=== PATIENT | female | born 1955 | race Caucasian/White ===

== ENCOUNTER 2017-12-09 10:21 | Inpatient (IN) | payer OTHER ==
[~2017-12-09] VITALS: Ht 165.1 cm; Wt 65.3 kg
[2017-12-09 10:30] VITALS: BP 99/73
[2017-12-09] MEDS ORDERED: CARAFATE 1 GM TA1 G1 PO (10:38)
[2017-12-09] MEDS ORDERED: OMEPRAZOLE20 MG PO (10:39)
[2017-12-09] MEDS ORDERED: ZANTAC300 MG PO (10:39)
[2017-12-09 11:08] LABS: HEMATOCRIT 37.8 % (37.0-47.0); HEMOGLOBIN 12.2 gm/dL (12.0-15.0); MCH 26.3 pg (26.0-34.0); MCHC 32.3 g/dL (28.0-37.0); MCV 81.4 fL (80.0-100.0); MPV 8.2 fl. (7.2-11.1); NUCLEATED RBCS 0 /100WBC; PLATELET COUNT* 233 thou/uL (150-400); RBC 4.64 mil/uL (4.20-5.00); RDW-CV 19.3 % (10.5-14.5); WBC 13.2 thou/uL (4.0-11.0)
[2017-12-09 11:13] LABS: ANION GAP 14 mmol/L (7-16); BUN 18 mg/dL (7-18); CALCIUM 9.1 mg/dL (8.5-10.1); CHLORIDE 96 mmol/L (98-107); CO2 23 mmol/L (21-32); CREATININE 0.9 mg/dL (0.6-1.3); GLUCOSE 130 mg/dL (70-99); POTASSIUM 3.1 mmol/L (3.5-5.1); SODIUM 133 mmol/L (136-145)
[2017-12-09 11:24] LABS: ALBUMIN 3.2 g/dL (3.4-5.0); ALKALINE PHOSPHATASE 742 U/L (46-116); LIPASE 56 U/L (73-393); NT-PRO BRAIN NAT PEPTIDE 1027 pg/mL (<300); SGOT 285 U/L (15-37); SGPT 639 U/L (30-65); TOTAL BILIRUBIN 3.6 mg/dL (<0.1-1.0); TROPONIN-I LEVEL <0.06 ng/mL (<0.06)
[2017-12-09 11:26] LABS: ABSOLUTE LYMPHOCYTES 0.9 thou/uL (0.8-5.3); ABSOLUTE MONOCYTES 0.1 thou/uL (0.0-1.2); ABSOLUTE NEUTROPHILS 12.1 thou/uL (1.6-8.1); PLATELET ESTIMATE ADEQUATE
[2017-12-09 20:10] VITALS: BP 125/70
[2017-12-09 21:00] VITALS: BP 156/74
[2017-12-10] VITALS: BP 122/72
--- NOTE | 2017-12-10 02:47 | NUR ---
ASSUMED PT CRAE AT 2030, PT IS A&OX4, PT IS TRACING NSR ON THE MONITOR, OCCASIONALLY PACED. ADMISSION ASSESSMENT WAS COMPLETED CHARTED. PT IS ON RA SATTING MID TO HIGH 90'S. PT C/O EPIGASTRIC PAIN THROUGHOUT THE SHIFT, PRN PAIN MEDICATIONS GIVEN PER JAN. PT IS ON A CL DIET, TOLERATING IT WELL. BED IN LOW POSITION, CALL LIGHT IN REACH, HOURLY ROUNDING COMPLETED FOR PT SAFETY.
[2017-12-10 04:00] VITALS: BP 117/73
[2017-12-10 05:30] LABS: ABSOLUTE LYMPHOCYTES 0.4 thou/uL (0.8-5.3); ABSOLUTE MONOCYTES 0.3 thou/uL (0.0-1.2); ABSOLUTE NEUTROPHILS 4.1 thou/uL (1.6-8.1); BASOPHILS 0.1 %; EOSINOPHILS 0.4 %; HEMATOCRIT 31.9 % (37.0-47.0); LYMPHOCYTES 7.6 %; MCH 25.9 pg (26.0-34.0); MCHC 31.6 g/dL (28.0-37.0); MCV 81.9 fL (80.0-100.0); MONOCYTES 6.7 %; MPV 8.1 fl. (7.2-11.1); NUCLEATED RBCS 0 /100WBC; POLYS 85.2 %; RBC 3.89 mil/uL (4.20-5.00); RDW-CV 18.8 % (10.5-14.5); WBC 4.8 thou/uL (4.0-11.0)
[2017-12-10 05:32] LABS: HEMOGLOBIN 10.1 gm/dL (12.0-15.0); PLATELET COUNT* 153 thou/uL (150-400)
[2017-12-10 05:50] LABS: CALCIUM 8.1 mg/dL (8.5-10.1); CREATININE 0.5 mg/dL (0.6-1.3)
[2017-12-10 05:59] LABS: POTASSIUM 2.9 mmol/L (3.5-5.1)
[2017-12-10 08:00] VITALS: BP 127/87
--- NOTE | 2017-12-10 10:44 | NUR ---
CM SPOKE TO THE PATIENT TO DISCUSS HOME SITUATION, DISCHARGE PLANNING, AND TO INFORM OF THE ROLE OF CM. PATIENT ALERT, ORIENTED, AND INDPENEDENT WITH ADL'S. PATIENT RESIDES IN A FRIENDS BASEMENT. 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 PATIENT USES 0 DME. PATIENT HAS NO HX OF HH OR SNF. PATIENT PLANS TO RETURN HOME AT DISCHARGE. CM WILL REMAIN AVAILABLE TO ASSIST AND FOLLOW NEEDED.
[2017-12-10 11:19] LABS: ALBUMIN 2.5 g/dL (3.4-5.0); DIRECT BILIRUBIN 1.7 mg/dL (<0.1-0.3); TOTAL PROTEIN 5.6 g/dL (6.4-8.2)
[2017-12-10 11:59] VITALS: BP 119/71
[2017-12-10 15:47] VITALS: BP 141/78
[2017-12-10 16:07] LABS: HEPATITIS B SURFACE AG Negative (Negative)
--- NOTE | 2017-12-10 17:38 | EKG ---
[place] [address] ELECTROCARDIOGRAM REPORT Name: CARMEN RODRIGUEZ Room: [address] IN .R.#: [id number] Admission: 12/09/17 Attend Phys: Dm Ojeda MD Discharge: Date of : 57 Report #: [id number] THIS REPORT FOR: //name// [facility] ED Test Date: 2017-12-09 Test Time: 10:25:56 Pat Name: CARMEN RODRIGUEZ Department: Room: [facility] Gender: F Spring Internship: Yair KRUEGER : 1955 Requested By: Leticia Matos Order Number: [id number] MD: Tashi Kaiser Measurements Intervals Casey Rate: 121 P: 59 OK: 112 QRS: 113 QRSD: 85 T: 0 QT: 273 QTc: 388 Interpretive Statements Sinus tachycardia Left posterior fascicular block Borderline T wave abnormalities No previous ECG available for comparison Electronically Signed On 12-10-2017 17:38:15 CONTENT CURATOR by Tashi Kaiser [email or web address] <ELECTRONICALLY SIGNED> By: Tashi Kaiser MD, [facility] 12/10/17 1738 1025 Tashi Kaiser MD, FAC /EPI
--- NOTE | 2017-12-10 18:53 | NUR ---
PATINET RESTING IN BED. VITAL SIGNS STABLE AND PATIENT IN NO APPARENT DISTRESS AT THIS TIME. PATINET IS MED/SURG STATUS. HOURLKY ROUNDING COMPLETD FOR PATINET SAFETY.
[2017-12-10 20:30] VITALS: BP 150/86
[2017-12-11 00:08] VITALS: BP 140/58
[2017-12-11 05:31] LABS: ABSOLUTE EOSINOPHILS 0.1 thou/uL (0.0-0.7); ABSOLUTE LYMPHOCYTES 0.6 thou/uL (0.8-5.3); ABSOLUTE MONOCYTES 0.3 thou/uL (0.0-1.2); BASOPHILS 0.5 %; EOSINOPHILS 2.4 %; HEMATOCRIT 31.1 % (37.0-47.0); MCH 26.3 pg (26.0-34.0); MCHC 32.3 g/dL (28.0-37.0); MCV 81.5 fL (80.0-100.0); MONOCYTES 10.7 %; MPV 8.2 fl. (7.2-11.1); NUCLEATED RBCS 0 /100WBC; PLATELET COUNT* 164 thou/uL (150-400); POLYS 67.4 %; RBC 3.82 mil/uL (4.20-5.00); RDW-CV 18.7 % (10.5-14.5); WBC 2.9 thou/uL (4.0-11.0)
[2017-12-11 05:36] LABS: ALBUMIN 2.2 g/dL (3.4-5.0); CALCIUM 8.3 mg/dL (8.5-10.1); CREATININE 0.5 mg/dL (0.6-1.3); POTASSIUM 3.6 mmol/L (3.5-5.1); TOTAL PROTEIN 5.9 g/dL (6.4-8.2)
--- NOTE | 2017-12-11 05:46 | NUR ---
ASSUMED CARE AROUND 1930. PT A/OX4 AND PLEASANT, NO NEW CONCERNS VOICED DURING NIGHT. MED/SURG STATUS. VSS. ON ROOM AIR. REPORTS 2/10 EPIGASTRIC PAIN BUT REFUSED ANY PAIN MEDS. IVF INFUSING ORDERED. UP AD JUANI. SEE CHARTING. CALL LIGHT IN REACH, WILL CONTINUE WITH PLAN OF CARE.
[2017-12-11 08:00] VITALS: BP 141/70
--- NOTE | 2017-12-11 08:25 | NUR ---
RECEIVED REPORT. ASSUMED CARE OF PT AT O730. VSS. PT A&O X4. O2 SAT >90% ON ROOM AIR. PT M/S STATUS. IV PATENT AND INFUSING. PT TOLERATING LIQUID DIET - WANTING TO BE ADVANCED. PT ANXIOUS TO DC IF ABLE. PT INFORMED OF PLAN OF CARE, PT COMMUNICATES UNDERSTANDING. PT DENIES PAIN OR DISCOMFORT, EXCEPT VERY MINIMAL EPIGASTRIC PAIN. PT UP AD JUANI IN ROOM. LOW FALL RISK PRECAUTIONS IN PLACE. CALL LIGHT IS WITHIN REACH, WILL CONTINUE TO MONITOR.
[2017-12-11 13:08] LABS: IgG 704 mg/dL (700-1600); IgM 26 mg/dL (26-217)
[2017-12-11 15:38] VITALS: BP 139/73
--- NOTE | 2017-12-11 18:30 | NUR ---
VSS. 02 SAT >90% ON ROOM AIR. IV PATENT AND INFUSING. M/S STATUS. DIET ADVANCED TO REGULAR, TOERATING WELL. RECORDS OBTAINED FROM [facility] PER DR HERNANDEZ'S REQUEST. PT HAS DISCHARGE ORDERS IN CHART IF OKAY WITH CONSULTS, BUT GI NOT READY TO SIGN OFF. POTENTIAL DC TOMORROW. PT CONTINUES TO DENY PAIN. UP AD JUANI. VOIDING WITHOUT ISSUE. FAMILY VISITED THIS EVENING. HOURLY ROUNDING PERFORMED. LOW FALL RISK PRECAUTIONS IN PLACE. CALL LIGHT IS WITHIN REACH.
[2017-12-11 20:07] VITALS: BP 132/79
[2017-12-11 23:41] VITALS: BP 130/75
[2017-12-12 05:22] LABS: ALBUMIN 2.2 g/dL (3.4-5.0); CALCIUM 7.9 mg/dL (8.5-10.1); CREATININE 0.6 mg/dL (0.6-1.3); POTASSIUM 3.2 mmol/L (3.5-5.1); TOTAL BILIRUBIN 0.5 mg/dL (<0.1-1.0); TOTAL PROTEIN 5.3 g/dL (6.4-8.2)
--- NOTE | 2017-12-12 06:09 | NUR ---
ASSUMED CARE AROUND 1930. PT A/OX4 AND VERY PLEASANT, NO CONCERNS VOICED DURING NIGHT. DENIES ANY NAUSEA OR ABDOMINAL PAIN. MED/SURG STATUS. VSS. ON ROOM AIR. IVF INFUSING ORDERED. UP AD JUANI IN ROOM. STATES READY TO GO HOME TODAY. CALL LIGHT IN REACH, WILL CONTINUE WITH PLAN OF CARE.
[2017-12-12 08:00] VITALS: BP 120/78
--- NOTE | 2017-12-12 08:45 | NUR ---
RECEIVED REPORT. ASSUMED CARE AT 0730. PT A&O X4. VSS. O2 SAT 98% ON ROOM AIR. PT M/S STATUS. AM ASSESSMENT AND VITALS COMPLETED CHARTED. PT DENIES PAIN OR DISCOMFORT AT THIS TIME. PT TOLERATING ADVANCED DIET. PT UP AD JUANI IN ROOM. IV PATENT AND INFUSING. PT INFORMED OF PLAN OF CARE. PT COMMUNICATES UNDERSTANDING. PT LIKELY TO DC TODAY. LOW FALL RISK PRECAUTIONS IN PLACE. CALL LIGHT IS WITHIN REACH. WILL CONTINUE TO MONITOR.
[2017-12-12] MEDS ORDERED: LEVAQUIN 500 M500 M2 PO (10:30)
[2017-12-12 10:31] VITALS: BP 130/75
--- NOTE | 2017-12-12 11:21 | CON ---
[address] [address] CONSULTATION Name: MICHAELCARMEN Oanh Room: [address] IN M.R.#: [id number] Admission: 12/09/17 Attend Phys: Dm Ojeda MD Discharge: Date of : 57 Report #: [id number] THIS REPORT FOR: //name// CC: Dm Green ATTENDING PHYSICIAN: Dr. Ojeda. REASON FOR CONSULTATION: Bronchiectasis on the CT scan. HISTORY OF PRESENT ILLNESS: The patient is a 61-year-old female patient with history of smoking for a long time, although she told me she does not have COPD. She presented to the hospital with abnormal liver function test and abdominal pain. She was evaluated by GI and their impression is that it is consistent with signs of obstruction due to gallbladder stone in the common bile duct and that has passed into the small bowel. Her liver function tests is improving and her abdominal pain is improving. They could not do MRCP because of history of pacemaker. She told me she is a smoker. So saw a cement rubber few months ago at [facility]. She had a bronchoscopy and according to her everything was fine. Initially, they thought she had a mass, but the bronchoscopy ruled it out and turned out to have pneumonia. She had a PFT and she is not aware that she has COPD, although she had Symbicort and rescue inhaler at home that she is not using. Part of the workup here included a CT scan of the chest that demonstrated right lower lobe bronchiectasis. The patient told me she is breathing comfortable, she is on room air, she does not use oxygen at home and she did not produce much sputum. ALLERGIES: CIMETIDINE. HOME MEDICATIONS: She is on Zantac, omeprazole, Carafate. PAST MEDICAL HISTORY: Gastroesophageal reflux disease. PAST SURGICAL HISTORY: Cholecystectomy, hysterectomy, pacemaker placement and right breast lumpectomy. FAMILY HISTORY: Reviewed with the patient, noncontributory. SOCIAL HISTORY: Continues to smoke 1 pack per day for a long time. Does not abuse drugs. Does not drink alcohol. REVIEW OF SYSTEMS: She denied fever, chills, blurring of vision, nasal discharge or obstruction. She denied dysphagia. She denied cough or sputum production or feeling short of breath at this point. She has no urinary symptoms. Rest of the review [place] [address] CONSULTATION Name: CARMEN RODRIGUEZ Room: [address]#: [id number] Admission: 12/09/17 Attend Phys: Dm Ojeda MD Discharge: Date of : 57 Report #: [id number] PHYSICAL EXAMINATION: VITAL SIGNS: On examination, she is on room air with saturation 95%, blood pressure ____, breathing 17 times a minute, temperature 36.8. GENERAL APPEARANCE: Comfortable, sitting on a chair, speaks in full sentences, no distress. HEAD: Normocephalic, atraumatic. EYES: Pupils are equal, reactive to light. Extraocular muscle movements intact. NECK: Supple. No palpable lymph node, no palpable thyroid. Trachea is central. ORAL CAVITY: Moist mucous membrane. Mallampati of 2. NOSE: Nasal passages patent. EARS: External ear looks normal. CHEST: Some crackles heard at the right lung base, but no wheezes. There is no tenderness, symmetrical expansion, no deformity in the chest. HEART: S1, S2, no murmur. ABDOMEN: Benign, soft, lax, nontender. EXTREMITIES: Lower extremities no edema, no calf tenderness. MUSCULOSKELETAL: Normal inspection, no deformity. PSYCHIATRIC: Mood and affect appropriate, good insight and judgment. LYMPHATICS: No palpable lymph node. SKIN: Normal for age and race. LABORATORY DATA: CT of the chest was reviewed that demonstrated bronchiectasis in the right lower lobe with chronic inflammatory changes. Her white blood count is 13.2 with hemoglobin 12.2 and platelet of 233. Her INR was 1 and her creatinine is 0.5 with sodium 133. Her liver function test is elevated, but is improving. IMPRESSION: 1. Abnormal liver function test. 2. Suspected common bile duct stone. 3. Abdominal pain. 4. Bronchiectasis right lower lobe. 5. Presumed chronic obstructive pulmonary disease. PLAN: The patient already followed by cement rubber. These findings appear to be known to the . She has bronchiectasis. I did explain to her what bronchiectasis means and what are the precautions. We will provide her with incentive spiromertry and flutter valve to use at home, she needs to use it daily after using her albuterol inhaler. I instructed her to use her Symbicort as she is supposed to and she needs to follow with her cement rubber. At this point, I would continue the course of antibiotics and use nebulization treatment. No further recommendation, will be [place] [address] CONSULTATION Name: CARMEN RODRIGUEZ Room: [address] IN [facility].#: [id number] Admission: 12/09/17 Attend Phys: Dm Ojeda MD Discharge: Date of : 57 Report #: [id number] Thank you for the consult. <ELECTRONICALLY SIGNED> By: Lubna Hightower MD 12/12/17 1121 1131 2038Lubna Hightower MD /nt
--- NOTE | 2017-12-12 12:33 | NUR ---
DISCHARGE ORDERS RECEIVED. DISCHARGE COMPLETED CHARTED. DISCHARGE SUMMARY AND CARE NOTES GONE OVER WITH THE PT. PT COMMUNICATES UNDERSTANDING. SCRIPT GIVEN. PT AWARE OF FOLLOW UP APPOINTMENTS. IV REMOVED. ALL BELONINGS GATHERED AND SENT WITH THE PT. VSS AT TIME OF DC. PT EATING AND DRINKING WITHOUT ISSUE. UP AD JUANI. PT ESCORTED OFF UNIT WITH NURSING STAFF. PT LEFT UNIT WITH FAMILY IN CAR.
[2017-12-12 12:43] VITALS: BP 126/81
[2017-12-13 19:12] LABS: ANA INTERPRETATION Negative (())
--- NOTE | 2017-12-27 19:58 | CON ---
[address] [address] CONSULTATION Name: CARMEN RODRIGUEZ Room: [address] IN M.R.#: [id number] Admission: 12/09/17 Attend Phys: Dm Ojeda MD Discharge: 12/12/17 Date of : 57 Report #: [id number] THIS REPORT FOR: //name// CC: Dm Green MD DATE OF SERVICE: 12/10/2017 ADDENDUM This is an addendum to job #[id number]. I have seen and examined the patient and agree with plans that have been outlined by nurse practitioner, Karla Faye. I agree that the history is most compatible with transient obstruction secondary to common bile duct stone or stones which may or may not have passed into her small bowel. I reviewed her CT scan. I could not definitively identify any stones within her CBD, but it is certainly dilated as are her intrahepatic ducts. Unfortunately, we are unable to do an MRCP secondary to her having a pacemaker in place. While it is unlikely that she has autoimmune hepatitis or primary biliary cholangitis, I am also going to check some serologic studies just to make sure this is not the case. As far as what to do with her, I would go ahead and let her have a full liquid diet and if she has no further abdominal pain, advance to a low fat diet. If she does well without any further complaints of abdominal pain and her liver function test continues to improve, I have recommended she undergo an outpatient endoscopic ultrasound, possibly ERCP within the next couple of weeks with either Dr. Linares or Dr. Bernabe. If, however, she has recurrent right upper quadrant pain and her bilirubin continues to rise, we will proceed with an ERCP in this coming . I have discussed these plans with the patient as well as her family and everyone is in agreement with the same. <ELECTRONICALLY SIGNED> By: Ryan Olivares DO 12/27/171957 1710 [id number] Olivares DO /nt
--- NOTE | 2017-12-27 19:58 | CON ---
[address] [address] CONSULTATION Name: CARMEN RODRIGUEZ Room: [address] IN .R.#: [id number] Admission: 12/09/17 Attend Phys: Dm Ojeda MD Discharge: 12/12/17 Date of : 57 Report #: [id number] THIS REPORT FOR: //name// CC: Dm Geren DICTATED BY: Karla Faye [facility] DATE OF SERVICE: 12/10/2017 Please note at the time of this dictation, the patient was seen and physically examined by myself. REASON FOR CONSULTATION: Elevated LFTs and abdominal pain. HISTORY OF PRESENT ILLNESS: This 61-year-old female who presented to the Emergency Room yesterday with on Saturday evening she had an abrupt onset of epigastric to right upper quadrant pain that radiated into her back. She states that it progressed through the night. On Saturday, she states that she slept pretty much all day except when the pain would become more intense and it would wake her up and did not eat really much. On Saturday, she did have one episode of vomiting with no bright red blood or any coffee ground emesis. She states that her pain continued until her son came over on Saturday and with her pain still being significant he prompted her to come in to the Emergency Room to be further evaluated. The patient states that she saw [facility] back in May and had some endoscopy studies done, which we will obtain to further evaluate. The patient states she has never had this type of pain before and that she had her gallbladder taken out back in 2009 and she states it was related to stones. She states at the consultation that her pain is improving significantly and she is not requiring any pain medication. The patient did have an EGD with us back in 2013 that showed some gastritis and a small hiatal hernia. She did have a colonoscopy in 2012 that showed some internal hemorrhoids, medium sized diverticular disease and a flat polyp that was hyperplastic at that time, but she has had further testing done at [facility] since then. ALLERGIES: TAGAMET. MEDICATIONS: From home include ranitidine, omeprazole and Carafate. PAST MEDICAL HISTORY: Includes acid reflux. PAST SURGICAL HISTORY: She had a pacemaker in 2015. She had a hysterectomy, cholecystectomy and a right breast [place] [address] CONSULTATION Name: CARMEN RODRIGUEZ Room: [address]#: [id number] Admission: 12/09/17 Attend Phys: Dm Ojeda MD Discharge: 12/12/17 Date of : 57 Report #: [id number] FAMILY HISTORY: Noncontributory. SOCIAL HISTORY: She is a smoker daily of one pack per day. Denies any alcohol or illegal drug use at this time. REVIEW OF SYSTEMS: Twelve-point review of systems is essentially negative except what is mentioned in the HPI. PHYSICAL EXAMINATION: VITAL SIGNS: Temperature 36.7, pulse 76, respirations 17 and blood pressure 119/71. HEART: Regular rate and rhythm. LUNGS: Clear. ABDOMEN: Soft and positive bowel sounds in all four quadrants with some slight epigastric tenderness noted to palpation. LABORATORY DATA: Hemoglobin is 10.1 and on admission she was 12.2; white count was slightly elevated at 13.2 and she is down to 4.8; platelets 153 and hematocrit of 31.9. Sodium 137, potassium 2.9, chloride 103, CO2 of 20, BUN is 12, creatinine 0.5, GFR is 126, glucose 66, total bilirubin on admission was 3.6 and it is now 2, alkaline phosphatase was 742 and is now 555, ALT was 639 and down to 340, AST was 285 and down to 97. CT of the abdomen and pelvis showed calcification in the thoracic aorta with no dissection noted. She does have some mild nonspecific retrocrural mediastinal adenopathy. Ultrasound of the liver and abdomen shows common bile duct normal, liver has some echogenicity, is coarse and increased suggesting maybe fatty infiltrations. Otherwise, gallbladder is absent and no ductal dilatation is noted. IMPRESSION: 1. Abdominal pain, which is improving. History of a laparoscopic cholecystectomy in 2009 related to stones. 2. Vomiting and has resolved. 3. Elevated LFTs. They are improving. 4. Anemia. 5. Leukocytosis, resolved. 6. Hypokalemia, getting replaced. 7. Fatty liver. PLAN: 1. We will monitor her LFTs. They are trending down. It may be that the patient has passed a residual stone due to her history 2. We will check labs in the a.m. CBC, CMP and acute hepatitis panel is still pending. 3. Full liquid diet and advance as tolerated. 4. We will obtain her records from [facility]. 5. Further recommendations to be made once the above have all been reviewed. [address] [address] CONSULTATION Name: CARMEN RODRIGUEZ Room: [address] [place] ..#: [id number] Admission: 12/09/17 Attend Phys: Dm Ojeda MD Discharge: 12/12/17 Date of : 57 Report #: [id number] Thank you for allowing us to participate in this patient's care. Please do not hesitate to call with any questions in regard to this consult. ADDENDUM I have seen and examined the patient and agree with plans that have been outlined by nurse practitioner, Karla Faye. I agree that the history is most compatible with transient obstruction secondary to common bile duct stone or stones which may or may not have passed into her small bowel. I reviewed her CT scan. I could not definitively identify any stones within her CBD, but it is certainly dilated as are her intrahepatic ducts. Unfortunately, we are unable to do an MRCP secondary to her having a pacemaker in place. While it is unlikely that she has autoimmune hepatitis or primary biliary cholangitis, I am also going to check some serologic studies just to make sure this is not the case. As far as what to do with her, I would go ahead and let her have a full liquid diet and if she has no further abdominal pain, advance to a low fat diet. If she does well without any further complaints of abdominal pain and her liver function test continues to improve, I have recommended she undergo an outpatient endoscopic ultrasound, possibly ERCP within the next couple of weeks with either Dr. Linares or Dr. Bernabe. If, however, she has recurrent right upper quadrant pain and her bilirubin continues to rise, we will proceed with an ERCP in this coming . I have discussed these plans with the patient as well as her family and everyone is in agreement with the same. <ELECTRONICALLY SIGNED> By: Ryan Olivares DO 12/27/17 1958 [id number] [id number] Olivares DO /nt
== END 2017-12-12 12:47 | disposition home or self-care (01) | DRG 177 ==
LOC: M.ERS 10:21 → M.2W 12:18 → M.TBA-ER 12:18 → M.2W 20:41
PROVIDERS: Internal Medicine Gastroenterology; Nurse Practitioner Adult Health; Personal Emergency Response Attendant; ADMIT Internal Medicine
DX: J15.6 Pneumonia due to other Gram-negative bacteria (principal); K83.1 Obstruction of bile duct; B17.9 Acute viral hepatitis, unspecified; R65.10 Systemic inflammatory response syndrome (SIRS) of non-infectious origin without acute organ dysfunction; E44.1 Mild protein-calorie malnutrition; K21.9 Gastro-esophageal reflux disease without esophagitis; F17.210 Nicotine dependence, cigarettes, uncomplicated; D64.9 Anemia, unspecified; D72.829 Elevated white blood cell count, unspecified; E87.6 Hypokalemia; J44.9 Chronic obstructive pulmonary disease, unspecified; K76.0 Fatty (change of) liver, not elsewhere classified; Z79.899 Other long term (current) drug therapy; Z95.0 Presence of cardiac pacemaker; Z90.710 Acquired absence of both cervix and uterus; Z88.8 Allergy status to other drugs, medicaments and biological substances; Z90.49 Acquired absence of other specified parts of digestive tract